=== PATIENT | female | born 1985 | race Caucasian/White ===

== ENCOUNTER → 2022-03-04 09:16 | Outpatient (BNVA) | payer BC, SELFPAY | PROVIDERS: Visit Provider Nurse Practitioner Family | DX: E34.8 Other specified endocrine disorders (principal) ==

== ENCOUNTER → 2022-06-17 09:17 | Outpatient (BNVA) | payer BC, SELFPAY | PROVIDERS: PCP Internal Medicine; Visit Provider Nurse Practitioner Family | DX: Z13.89 Encounter for screening for other disorder (principal) ==

== ENCOUNTER 2023-02-10 15:19 | Outpatient (AMB) | payer BC, SELFPAY ==
[2023-02-10 15:23] VITALS: BP 114/86; PULSE 87; O2SAT 100; BMI 31.9
--- NOTE | 2023-02-10 15:23 | A.OFFVIS_ITS ---
Intake Vital Signs 02/10/23 15:23 Height 5 ft Weight 163 lb 6 oz BMI 31.9 BP 114/86 Blood Pressure Location Lt brachial Position Sitting Pulse 87 Pulse Source Pulse Oximeter Pulse Oximetry (%) 100 Oxygen Delivery Method Room Air Intake Visit Reasons: f/u to r/o narcolepsy Intake Note: Pt presents to the office today for a follow up to rule out narcolepsy. Allergies egg [EGG] Allergy (Intermediate, Unverified 02/10/23 15:25) SWELLING honey [Honey] Allergy (Intermediate, Unverified 02/10/23 15:25) SWELLING kiwi [KIWI (ACTINIDIA CHINENSIS)] Allergy (Intermediate, Unverified 02/10/23 15:25) SWELLING From WELLBUTRIN Allergy (Severe, Uncoded 02/10/23 15:25) CHEST PAIN/SOB HPI HPI Comments History of Present Illness Details 37-yr-old female presents for [facility] today. Pt reports difficulty staying awake, but it is not consistent. She always having vivid emotional dream and sleep paralysis, she is trying to move, but can't. It does not happen often, happens when she wakes up too early or taking a nap. Pt also reports auditory hallucination while she falls asleep. She hears loud crash, bang sound, or people yelling her name. She knows that it is not real. Pt thinks that she dose not snore, but wakes up gasping, frequent arousals and headache. She can have dizziness, but it is more related to migraine. She takes trazodone 50 mg qHS, it helps her not having vivid dreams, and helps her staying sleep. Denies sudden muscle weakness related to strong emotion. Sleep questionnaire: Have you ever been diagnosed with a sleep disorder? No. Have you ever had a sleep study in the past? No. Have you ever been treated for a sleep disorder? No. Do you take medications for a sleep disorder? Trazodone 50 mg Do you snore? No. Do you wake up gasping at night? Yes. Do you have episodes of apneas? No. If yes, are they witnessed? No. Do you have episodes of nocturnal chest pain or dyspnea? Yes. Do you have difficulty initiating sleep? Yes, but trazodone helps. Do you have difficulty maintaining sleep? Yes. Do you wake up tired? Yes. Do you have headaches upon awakening? Yes. Do you wake up with dry mouth or throat? Yes. Do you have GERD? Yes. Do you have nocturia? Not really. Do you have nocturnal leg cramps? Yes, not often. Do you have symptoms of restless legs? No. Do you act out your dreams? No. Sleep hygiene questionnaire: What is your usual sleep routine? Usual bedtime is at 10 pm ; Usual wake up time is at 7 am. Do you take naps? Yes, if she can. Is your sleep environment cool, dark, and quiet? Yes. Do you exercise? No. Do you take caffeine or other stimulants? Coffee in the morning. Do you use electronics in bed? Yes. What is your work schedule? 8 am to 8 pm. Hypersomnolence questionnaire: Do you have daytime tiredness or fatigue? Yes. Do you easily fall asleep when inactive? Yes. Have you ever had episodes of sudden weakness? No. Have you ever had episodes of sudden weakness associated with strong emotions? No. PFSH Medical History Asthma Pineal gland cyst H/O head injury Surgical History Hx of knee surgery History of nasal surgery Family History Sister Migraine Seizure Chiari I malformation Father Pancreatic cancer Social History Alcohol intake: current Alcohol intake frequency: holidays/special occasions only Patient Tobacco Use Status: Former Tobacco user Quit Date: July 2010 Substance Use Type: Marijuana Questionnaire [place] Sleepiness Scale Questions Sitting and reading: moderate chance of dozing Watching TV: slight chance of dozing Sitting inactive in a theater, movie etc.: would never doze As a passenger in a car for an hour without break: moderate chance of dozing Lying down in the afternoon when circumstances permit: high chance of dozing Sitting and talking to someone: would never doze Sitting quietly after lunch without alcohol: moderate chance of dozing In a car, while stopped for a few minutes in the traffic: would never doze ESS < 10: normal, ESS > 12: pathologic: 10 Review of Systems Const All systems reviewed & are unremarkable except as noted in HPI and below Physical Exam Vital Signs: Last Vital Signs Pulse 87 02/10/23 15:23 BP 114/86 02/10/23 15:23 Pulse Ox 100 02/10/23 15:23 Oxygen Delivery Method Room Air 02/10/23 15:23 BMI result Body Mass Index 31.9 Const General: cooperative and no acute distress Orientation/consciousness: patient oriented x3 HEENT Head: Yes normocephalic Resp Effort & Inspection: normal respiratory effort and able to speak in complete sentences Back/Spine/Pelvis Other: Bilateral posterior cervical tightness. Neuro General: patient oriented x3, gait normal and CN's II-XI intact bilaterally Cognition (Neuro): normal cognition Motor exam (neuro): 5/5 motor strength present throughout Psych Appearance: grossly normal Mental Status: mental status grossly normal Speech and movement: Normal speech and movement present Affect: normal affect Attitude: cooperative Thought process: Normal thought process present Thought content: Normal thought content present Insight: Good insight present (Psych) Judgement: Good judgement present (Psych) Assessment & Plan Assessment & Plan (1) Daytime sleepiness: Code(s): R40.0 - Somnolence (2) Sleep paralysis: Code(s): G47.8 - Other sleep disorders Plan Pt is advised to undergo home sleep study to assess for sleep apnea. Will f/u with pt after study to discuss results and appropriate treatment options. Sleep hygiene education provided. Pt to call with any worsening concerns or questions. Orders: Orders RT home sleep study Today G47.8 - Other sleep disorders, R06.83 - Snoring, R40.0 - Somnolence Coding Level of Care Code New Pt Level 3 (88867) Diagnoses Daytime sleepiness R40.0 Sleep paralysis G47.8
== END 2023-02-10 15:46 | disposition home or self-care (01) ==
PROVIDERS: PCP Internal Medicine; Visit Provider Nurse Practitioner Family
DX: R40.0 Somnolence (principal); G47.8 Other sleep disorders
CPT/HCPCS: 99203; 99213

== ENCOUNTER → 2023-02-10 15:19 | Outpatient (BNVA) | payer BC, SELFPAY | PROVIDERS: PCP Internal Medicine; Visit Provider Nurse Practitioner Family ==

== ENCOUNTER → 2023-03-31 07:18 | Outpatient (BNV) | payer BC, SELFPAY | PROVIDERS: PCP Internal Medicine; Visit Provider Psychiatry & Neurology Neurology | DX: R06.83 Snoring (principal); R40.0 Somnolence | CPT/HCPCS: 95806 ==

== ENCOUNTER → 2023-03-31 13:54 | Outpatient (REF) | payer BC, OTHER, SELFPAY | LOC: HO.SL 13:54 | PROVIDERS: PCP Internal Medicine; Visit Provider Nurse Practitioner Family | DX: G47.8 Other sleep disorders (principal); R06.83 Snoring; R40.0 Somnolence | CPT/HCPCS: 95806 ==

== ENCOUNTER 2023-04-14 13:18 | Outpatient (AMB) | payer BC, SELFPAY ==
--- NOTE | 2023-04-14 13:19 | MHC.OFFVIS ---
Intake Vital Signs 04/14/23 13:26 Height 5 ft Weight 159 lb 4 oz BMI 31.1 BP 115/72 Blood Pressure Location Rt brachial Position Sitting Pulse 78 Pulse Source Pulse Oximeter Pulse Oximetry (%) 100 Oxygen Delivery Method Room Air Intake Visit Reasons: FOLLOW UP-LVM Intake Note: Patient presents for f/u continues to have migraines x3 a week Allergies egg [EGG] Allergy (Intermediate, Verified 04/14/23 13:23) SWELLING honey [Honey] Allergy (Intermediate, Verified 04/14/23 13:23) SWELLING kiwi [KIWI (ACTINIDIA CHINENSIS)] Allergy (Intermediate, Verified 04/14/23 13:23) SWELLING From WELLBUTRIN Allergy (Severe, Uncoded 02/10/23 15:25) CHEST PAIN/SOB Medication List - Last Reconciled 04/14/23 by SIDNEY Shipley atogepant (Qulipta) 30 mg PO DAILY 30 days baclofen 10 mg PO BEDTIME 30 days coeflmlmpt-efakgoedapcdd-hwgf 50-325-40 mg TAKE 1 TABLET BY MOUTH NEEDED FOR SEVERE MIGRAINES, may repeat every 4 hrs, MAX 3/DAY orally 30 days gabapentin 100 - 300 mg (1 - 3 x 100 mg) PO BEDTIME 30 days magnesium malate, chelate mg PO norethindrone-e.estradiol-iron 1 mg-20 mcg (21)/75 mg (7) (04/03 (28)) 1 tab PO DAILY omega 4-rco-rpj-fish oil 60-90-500 mg (Fish Oil) 1 cap PO DAILY omeprazole 20 mg PO DAILY rimegepant (Nurtec ODT) 75 mg orally once daily PRN; 32 days trazodone 50 mg PO BEDTIME HPI HPI Comments History of Present Illness Details 38-yr-old female presents for f/u visit. Pt denies any significant interval medical changes. She is having increased migraines. Having increased bilateral L > R jaw and neck pain/tightness. Baclofen helps- but cannot take nightly- makes her too sleepy. No jaw clicking/crepitus/locking. The Qulipta initially was helpful, but effect has been waning. The Fioricet seems more effective than the Nurtec. Tries to limit Fioricet to < 4 tabs per week. Not taking Gabapentin routinely- makes her too sleepy and not very effective and for tremor and bruxism. Now on Trazodone from PCP- helps her dreams and sleep paralysis. She continues to have apneas, gasping arousals, daytime tiredness. Her father has central sleep apnea, and her mother and sister have obstructive sleep apnea. The HST was inconclusive- she feels she did not sleep during the study. Baseline headache characteristics: a/w photophobia, phonophobia, nausea, at times paresthesias and slurred speech. Current number of typical migraine days in the last month: 3 migraine days per week Average painfulness of these migraines: Moderate, but 1 per week is more severe w/ more paresthesias/slurred speech. Current number of non-migraine headache days in the last month: daily Average painfulness of these headaches: mild-mod Current number of days of acute medication use per month: Tylenol and Ibuprofen most days. Previous number of migraine days per month prior to starting current preventive tx: daily PFSH Medical History Asthma Pineal gland cyst H/O head injury Surgical History Hx of knee surgery History of nasal surgery Family History Sister Migraine Seizure Chiari I malformation Father Pancreatic cancer Social History Alcohol intake: current Alcohol intake frequency: holidays/special occasions only Patient Tobacco Use Status: Former Tobacco user Quit Date: July 2010 Substance Use Type: Marijuana Physical Exam Vital Signs: Last Vital Signs Pulse 78 04/14/23 13:26 BP 115/72 04/14/23 13:26 Pulse Ox 100 04/14/23 13:26 Oxygen Delivery Method Room Air 04/14/23 13:26 BMI result Body Mass Index 31.1 Const General: cooperative and no acute distress Orientation/consciousness: patient oriented x3 Resp Effort & Inspection: normal respiratory effort and able to speak in complete sentences Neuro General: patient oriented x3 Cranial nerves: Yes CN's II-XII intact bilaterally Cognition (Neuro): normal cognition Psych Appearance: grossly normal Mental Status: mental status grossly normal Speech and movement: Normal speech and movement present Affect: normal affect Attitude: cooperative Assessment & Plan Assessment & Plan (1) Chronic migraine without aura: Code(s): G43.709 - Chronic migraine without aura, not intractable, without status migrainosus (2) Daytime sleepiness: Code(s): R40.0 - Somnolence (3) Sleep paralysis: Code(s): G47.8 - Other sleep disorders (4) Witnessed episode of apnea: Code(s): R06.81 - Apnea, not elsewhere classified (5) Bruxism: Code(s): F45.8 - Other somatoform disorders (6) Temporal mandibular joint disorder: Code(s): M26.609 - Unspecified temporomandibular joint disorder, unspecified side (7) Essential tremor: Code(s): G25.0 - Essential tremor Plan For migraine prevention treatment: Start Vyepti 100mg IV q 3 months. Until Vyepti approved and started continue Qulipta 30mg qhs. Previous preventive migraine trials: Amitripyline- wt gain and sleepiness, Topirmate- violently ill , Propranolol- hair loss, Botox- worsening headache. Ajovy- short-term effect only. The upper acute migraine treatment: Trial rizatriptan 10 mg p.r.n. note this is better tolerated. Continue prn Nurtec 75mg qd prn. May use Fioricet sparingly for rescue- not prior to Nurtec. Continue green light tx. Previous acute migraine meds: Sumatriptan- caused N/V, dizziness. ? For sleep: Reviewed HST, results were inconclusive and patient states she did not sleep well during the study. Patient advised to undergo in-lab PSG sleep study. May continue trazodone 50 mg q.h.s. for now. Monitor sleep paralysis. ? For bruxism: Continue Baclofen 10-20mg qhs prn. Will refer to PT for TMG/bruxism. Previous treatment trials: My card: To not tolerate. Future considerations: Botox For cervicalgia and tremor: And monitor clinically. 04/08/2022: c-spine MRI- Mild degenerative changes at C5-C6 and C6-C7 Continue Baclofen 10-20mg qhs prn. Follow-up in 3 months or sooner as needed. Orders: Orders PT Evaluation and Treatment Today F45.8 - Other somatoform disorders, M26.609 - Unspecified temporomandibular joint disorder, unspecified side RT PSG in-lab sleep study Today G47.8 - Other sleep disorders, R06.81 - Apnea, not elsewhere classified, R40.0 - Somnolence Medications: New eptinezumab-jjmr (Vyepti) administer over 30 mins 100 mg IV [id number] 0RF G43.709 - Chronic migraine without aura, not intractable, without status migrainosus rizatriptan max 2 tabs per day or 4 tabs per week 5 - 10 mg (0.5 - 1 x 10 mg) PO Q2H 21 days PRN 12 tabs 3RF migraine headache Discontinued gabapentin Discontinued Reason: Patient no longer taking 100 - 300 mg (1 - 3 x 100 mg) PO BEDTIME 30 days 90 caps 6RF Coding Level of Care Code Est Pt Level 4 (80917) Diagnoses Chronic migraine without aura G43.709 Daytime sleepiness R40.0 Sleep paralysis G47.8 Witnessed episode of apnea R06.81 Bruxism F45.8 Temporal mandibular joint disorder M26.609 Essential tremor G25.0
[2023-04-14 13:26] VITALS: BP 115/72; PULSE 78; O2SAT 100; BMI 31.1
== END 2023-04-14 14:12 | disposition home or self-care (01) ==
LOC: HO.HSMS 13:18
PROVIDERS: PCP Internal Medicine; Visit Provider Nurse Practitioner Family
DX: G43.709 Chronic migraine without aura, not intractable, without status migrainosus (principal); R40.0 Somnolence; G47.8 Other sleep disorders; R06.81 Apnea, not elsewhere classified; F45.8 Other somatoform disorders; M26.609 Unspecified temporomandibular joint disorder, unspecified side; G25.0 Essential tremor
CPT/HCPCS: 99214

== ENCOUNTER → 2023-04-14 13:18 | Outpatient (BNVA) | payer BC, SELFPAY | PROVIDERS: PCP Internal Medicine; Visit Provider Nurse Practitioner Family ==

== ENCOUNTER → 2023-05-21 19:30 | Outpatient (REF) | payer BC, SELFPAY | LOC: HO.SL 19:30 | PROVIDERS: PCP Internal Medicine; Visit Provider Nurse Practitioner Family | DX: Z13.89 Encounter for screening for other disorder (principal) ==

== ENCOUNTER 2023-07-16 12:48 | Outpatient (AMB) | payer BC, SELFPAY ==
--- NOTE | 2023-07-16 13:01 | MHC.OFFVIS ---
Vital Signs 07/16/23 13:05 Height 5 ft Weight 156 lb 6 oz BMI 30.5 BP 115/70 Blood Pressure Location Lt brachial Position Sitting Pulse 80 Pulse Source Pulse Oximeter Pulse Oximetry (%) 100 Oxygen Delivery Method Room Air Intake Visit Reasons: 3 mo f/u-LVM Intake Note: Patient presents for 3 months f/u. Allergies egg [EGG] Allergy (Intermediate, Verified 07/16/23 13:04) SWELLING honey [Honey] Allergy (Intermediate, Verified 07/16/23 13:04) SWELLING kiwi [KIWI (ACTINIDIA CHINENSIS)] Allergy (Intermediate, Verified 07/16/23 13:04) SWELLING From WELLBUTRIN Allergy (Severe, Uncoded 02/10/23 15:25) CHEST PAIN/SOB Medication List - Last Reconciled 07/16/23 by SIDNEY Shipley atogepant (Qulipta) 30 mg PO DAILY 30 days baclofen 10 mg PO BEDTIME 30 days eyycdzafdy-iugjszzrpfpro-mlhs 50-325-40 mg TAKE 1 TABLET BY MOUTH NEEDED FOR SEVERE MIGRAINES, may repeat every 4 hrs, MAX 3/DAY orally 30 days eptinezumab-jjmr (Vyepti) 100 mg IV [id number] 1 dose magnesium malate, chelate mg PO norethindrone-e.estradiol-iron 1 mg-20 mcg ()/75 mg () ( FE 04/03 ()) 1 tab PO DAILY omega 8-mru-nxb-fish oil 60-90-500 mg (Fish Oil) 1 cap PO DAILY omeprazole 20 mg PO DAILY rimegepant (Nurtec ODT) 75 mg orally once daily PRN; 32 days rizatriptan 5 - 10 mg (0.5 - 1 x 10 mg) PO Q2H PRN 21 days trazodone 50 mg PO BEDTIME HPI Comments Details: 38-yr-old female presents for f/u visit. Pt denies any significant interval medical changes. Pt has started taking liquid IV daily. She resumed chiropractic tx. Pt feels this has helped her more severe migraine attack frequency, now 1 day per week, as opposed to 2-3 x's per week. Pt continue sto have daily low-level dull throbbing headache- has baseline photophobia and allodynia. Feels her jaw is more tight. The Rizatriptan worsened her migraine headache. Baseline headache characteristics: a/w photophobia, phonophobia, nausea, at times paresthesias and slurred speech. In-lab sleep study was normal. Sleeping better PFSH Medical History Asthma Pineal gland cyst H/O head injury Surgical History Hx of knee surgery History of nasal surgery Family History Sister Migraine Seizure Chiari I malformation Father Pancreatic cancer Social History Alcohol intake: current Alcohol intake frequency: holidays/special occasions only Patient Tobacco Use Status: Former Tobacco user Quit Date: July 2010 Substance Use Type: Marijuana Physical Exam Vital Signs: Last Vital Signs Pulse 80 07/16/23 13:05 BP 115/70 07/16/23 13:05 Pulse Ox 100 07/16/23 13:05 Oxygen Delivery Method Room Air 07/16/23 13:05 BMI result Body Mass Index 30.5 Const General: cooperative and no acute distress Orientation/consciousness: patient oriented x3 Resp Effort & Inspection: normal respiratory effort and able to speak in complete sentences Neuro General: patient oriented x3 Cranial nerves: Yes CN's II-XII intact bilaterally Cognition (Neuro): normal cognition Psych Appearance: grossly normal Mental Status: mental status grossly normal Speech and movement: Normal speech and movement present Affect: normal affect Attitude: cooperative Assessment & Plan Assessment & Plan (1) Chronic migraine without aura: Code(s): G43.709 - Chronic migraine without aura, not intractable, without status migrainosus Category: Medical (2) Cervicalgia: Code(s): M54.2 - Cervicalgia Category: Medical (3) Temporal mandibular joint disorder: Code(s): M26.609 - Unspecified temporomandibular joint disorder, unspecified side Category: Medical (4) Bruxism: Code(s): F45.8 - Other somatoform disorders Category: Medical Plan For migraine prevention treatment: Increase Atogepant from 30mg to 60mg qd. If Atogepant ineffective, trial Vyepti 100mg IV q 3 months. Previous preventive migraine trials: Amitripyline- wt gain and sleepiness, Topirmate- violently ill , Propranolol- hair loss, Botox- worsening headache. Ajovy- short-term effect only. The upper acute migraine treatment: Continue prn Nurtec 75mg qd prn. May use Fioricet sparingly for rescue- not prior to Nurtec. Continue green light tx. Previous acute migraine meds: Sumatriptan- caused N/V, dizziness. Rizatriptan- not tolerated. ? For sleep: Reviewed in-lab PSG sleep study- normal. May continue trazodone 50 mg q.h.s. for now. Monitor sleep and sleep paralysis. ? For bruxism: Continue Baclofen 10-20mg qhs prn. Previous treatment trials: Gababpentin- did not tolerate. Future considerations: Botox For cervicalgia and tremor: Monitor clinically. 04/08/2022: c-spine MRI- Mild degenerative changes at C5-C6 and C6-C7 Continue Baclofen 10-20mg qhs prn. Follow-up in 3 months or sooner as needed. Medications: New atogepant 60 mg PO DAILY 30 tabs 6RF 30 days Discontinued atogepant at bedtime Discontinued Reason: Doctor's Order 30 mg PO DAILY 30 days 30 tabs 6RF Coding Level of Care Code Est Pt Level 4 (38718) Diagnoses Chronic migraine without aura G43.709 Cervicalgia M54.2 Temporal mandibular joint disorder M26.609 Bruxism F45.8
[2023-07-16 13:05] VITALS: BP 115/70; PULSE 80; O2SAT 100; BMI 30.5
== END 2023-07-16 13:45 | disposition home or self-care (01) ==
PROVIDERS: PCP Internal Medicine; Visit Provider Nurse Practitioner Family
DX: G43.709 Chronic migraine without aura, not intractable, without status migrainosus (principal); M54.2 Cervicalgia; M26.609 Unspecified temporomandibular joint disorder, unspecified side; F45.8 Other somatoform disorders
CPT/HCPCS: 99214

== ENCOUNTER → 2023-07-16 12:48 | Outpatient (BNVA) | payer BC, SELFPAY | PROVIDERS: PCP Internal Medicine; Visit Provider Nurse Practitioner Family ==

== ENCOUNTER 2024-06-07 14:05 | Outpatient (AMB) | payer BC, SELFPAY ==
--- NOTE | 2024-06-07 14:28 | MHC.OFFVIS ---
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 Accompanied by: Self / Same As Patient Allergies egg [EGG] Allergy (Intermediate, Verified 07/16/23 13:04) SWELLING honey [Honey] Allergy (Intermediate, Verified 07/16/23 13:04) SWELLING kiwi [KIWI (ACTINIDIA CHINENSIS)] Allergy (Intermediate, Verified 07/16/23 13:04) SWELLING From WELLBUTRIN Allergy (Severe, Uncoded 02/10/23 15:25) CHEST PAIN/SOB Medication List - Last Reconciled 06/07/24 by SIDNEY Shipley baclofen 10 mg PO BEDTIME 30 days diclofenac potassium 50 mg PO Q12H PRN 30 days eptinezumab-jjmr (Vyepti) 100 mg IV [id number] 1 dose fluoxetine 20 mg PO DAILY hydroxyzine HCl 10 mg PO BEDTIME levocetirizine (Xyzal) 5 mg PO DAILY magnesium chelate, malate mg PO memantine 7 mg PO DAILY 14 days metoclopramide HCl 5 - 10 mg (1 - 2 x 5 mg) PO Q4-6H PRN 30 days norethindrone-e.estradiol-iron 1 mg-20 mcg (21)/75 mg (7) (04/03 ()) 1 tab PO DAILY norgestrel-ethinyl estradiol 0.3-30 mg-mcg (Low-Ogestrel (28)) 1 tab PO DAILY omega 8-uok-hzk-fish oil 60-90-500 mg (Fish Oil) 1 cap PO DAILY omeprazole 20 mg PO DAILY HPI Comments Details: 39-yr-old female presents for f/u visit for migraine. She weaned herself off of qulipta approx 6 months ago, as this caused constipation and she did not feel it was helping. However, in the last couple of months, she has again begun having daily migraine attacks and increased facial/scalp sensitivity/allodynia. She did try to switch her electrolyte drink to a migraine/brain fog however this seemed to worsen the migraine- and realized it contained gingo boloba. Since, she switched back to Liquid IV 2 weeks ago- and the migraine symptoms have lessened some but are still daily and she still has significant facial and scalp allodynia. She retried rizatriptan- helped pain some but worsens the other migraine/neuro symptoms. She is seen her chiropractor every 2 weke swhich helps with neck tightness, but effect does not last. She feels drained and exhausted all the time. Using baclofen 10 mg most nights, sometimes can use 20 mg however not if she has to work the following day as it makes her groggy. She works 12 hour shifts. Baseline headache characteristics: Throbbing aching head pain a/w photophobia, phonophobia, nausea, at times paresthesias and slurred speech. Previous In-lab sleep study was normal. [facility] Medical History Asthma Pineal gland cyst H/O head injury Surgical History Hx of knee surgery History of nasal surgery Family History Sister Migraine Seizure Chiari I malformation Father Pancreatic cancer Social History Alcohol intake: current Alcohol intake frequency: holidays/special occasions only Patient Tobacco Use Status: Former Tobacco user Substance Use Type: Marijuana Physical Exam Vital Signs: Last Vital Signs Pulse 94 06/07/24 14:29 BP 128/80 06/07/24 14:29 Pulse Ox 99 06/07/24 14:29 Oxygen Delivery Method Room Air 06/07/24 14:29 BMI result Body Mass Index 30.1 Const General: cooperative and no acute distress Orientation/consciousness: patient oriented x3 Resp Effort & Inspection: normal respiratory effort and able to speak in complete sentences Neuro Other: Photophobic General: patient oriented x3 Cranial nerves: Yes CN's II-XII intact bilaterally Cognition (Neuro): normal cognition Psych Appearance: grossly normal Mental Status: mental status grossly normal Speech and movement: Normal speech and movement present Affect: normal affect Attitude: cooperative Assessment & Plan Assessment & Plan (1) Chronic migraine without aura: Code(s): G43.709 - Chronic migraine without aura, not intractable, without status migrainosus Category: Medical Qualifiers: Status migrainosus presence: without status migrainosus Intractability: not intractable Qualified Code(s): G43.709 - Chronic migraine without aura, not intractable, without status migrainosus (2) Cervicalgia: Code(s): M54.2 - Cervicalgia Category: Medical (3) Temporal mandibular joint disorder: Code(s): M26.609 - Unspecified temporomandibular joint disorder, unspecified side Category: Medical (4) Bruxism: Code(s): F45.8 - Other somatoform disorders Category: Medical (5) Allodynia: Code(s): R20.8 - Other disturbances of skin sensation Category: Medical (6) Migraine with aura: Comment: When severe Code(s): G43.109 - Migraine with aura, not intractable, without status migrainosus Category: Medical Plan For migraine prevention treatment: Patient may benefit from trialing biofeedback therapy, patient advised to check with her insurance to see if this is a covered service. Patient may benefit from trying a neuromodulation device, such as an eTENs device (cefaly or [id number])- however, she is hesitant to significant allodynia. Discontinue Atogepant 60mg qd-ineffective and caused constipation Start memantine ER 7 mg daily for 14 days, if tolerated increase to 14 mg and then increased by 7 mg every 2 weeks up to 28 mg per day- 4 migraine headache as well as cognition. Start Vyepti 100mg IV q 3 months. Previous preventive migraine trials: Amitripyline- wt gain and sleepiness, Topirmate- violently ill , Propranolol- hair loss, Botox- worsening headache. Ajovy- short-term effect only.Atogepant 60mg qd-ineffective and caused constipation For acute migraine treatment: Discontinue Nurtec 75mg qd prn. May use Fioricet sparingly for rescue. Start Diclofenac 50mg twice a day as needed Start metoclopramide 5-10mg every 4-6 hrs for migraine headache and/or N/V Continue green light tx. Previous acute migraine meds: Sumatriptan- caused N/V, dizziness. Rizatriptan- not tolerated. ? For sleep: Reviewed in-lab PSG sleep study- normal. Monitor sleep and sleep paralysis. ? For bruxism, cervicalgia, tremor: 04/08/2022: c-spine MRI- Mild degenerative changes at C5-C6 and C6-C7 Continue Baclofen 10mg- may try 5-10mg after work and then 10mg qhs. Previous treatment trials: Gabapentin- did not tolerate. Future considerations: Botox Follow-up in 6 months or sooner as needed. Medications: New diclofenac potassium 50 mg PO Q12H 30 days PRN 60 tabs 3RF migraine headache memantine then stop and increase to 14mg qd 7 mg PO DAILY 14 days 14 ea 0RF metoclopramide HCl 5 - 10 mg (1 - 2 x 5 mg) PO Q4-6H 30 days PRN 30 tabs 3RF headache, nausea and vomiting Refilled eptinezumab-jjmr (Vyepti) administer over 30 mins 100 mg IV [id number] 0 mL 0RF G43.709 - Chronic migraine without aura, not intractable, without status migrainosus Discontinued rimegepant ([facility] ODT) Discontinued Reason: Duplicate 75 mg orally once daily PRN; 32 days 16 tabs 6RF migraine Coding Level of Care Code Est Pt Level 4 (76444) Diagnoses Chronic migraine without aura without status migrainosus, not intractable G43.709 Status migrainosus presence: without status migrainosus Intractability: not intractable Cervicalgia M54.2 Temporal mandibular joint disorder M26.609 Bruxism F45.8 Allodynia R20.8 Migraine with aura G43.109
[2024-06-07 14:29] VITALS: BP 128/80; PULSE 94; O2SAT 99; BMI 30.1
== END 2024-06-07 16:13 | disposition home or self-care (01) ==
LOC: HO.HSMS 14:06
PROVIDERS: PCP Internal Medicine; Visit Provider Nurse Practitioner Family
DX: G43.709 Chronic migraine without aura, not intractable, without status migrainosus (principal); M54.2 Cervicalgia; M26.609 Unspecified temporomandibular joint disorder, unspecified side; F45.8 Other somatoform disorders; R20.8 Other disturbances of skin sensation; G43.109 Migraine with aura, not intractable, without status migrainosus
CPT/HCPCS: 99214

== ENCOUNTER → 2024-06-07 14:05 | Outpatient (BNVA) | payer BC, SELFPAY | PROVIDERS: PCP Internal Medicine; Visit Provider Nurse Practitioner Family ==